=== PATIENT | female | born 1980 | race Caucasian/White ===

== ENCOUNTER 2019-08-31 10:55 | Emergency (ER) | payer OTHER, SELFPAY ==
[~2019-08-31] VITALS: Ht 167.6 cm; Wt 63.5 kg
[~2019-08-31 10:55] MED LIST: ACET-8386; BACL10TA4; BENEPROTEIN; BISA10SU1; CLON1TAB1; FOLI1TAB19; IRON; MVI; [UNRECOGNIZED DRUG - CODE]; [UNRECOGNIZED DRUG - CODE]
[2019-08-31 11:30] VITALS: BP 150/92
[2019-08-31] MEDS ORDERED: NACL 0.9% 1,000 ML IV ONE ×2 (11:30→12:40)
[2019-08-31 11:49] LABS: BASOPHILS % (AUTO) 0.5 % (0.0-2.0); EOSINOPHILS # (AUTO) 0.1 K/uL (0-0.4); EOSINOPHILS % (AUTO) 1.4 % (0.0-4.0); HEMATOCRIT 46.3 % (36-48); HEMOGLOBIN 15.7 g/dL (12.0-16.0); LYMPHOCYTES # (AUTO) 2.5 K/uL (2.5-16.5); LYMPHOCYTES % (AUTO) 26.1 % (20.5-51.1); MEAN CORPUSCULAR HEMOGLOBIN 31 pg (27-31); MEAN CORPUSCULAR HGB CONC 34 g/dL (33-37); MEAN CORPUSCULAR VOLUME 92.3 fL (80-94); MONOCYTES # (AUTO) 0.9 K/uL (0.8-1.0); MONOCYTES % (AUTO) 8.9 % (1.7-9.3); NEUTROPHILS # (AUTO) 6.1 K/uL (1.8-7.7); NEUTROPHILS % (AUTO) 63.1 % (42.2-75.2); PLATELET COUNT (AUTO) 352 K/uL (140-450); RED BLOOD CELL COUNT(AUTO) 5.02 MIL/uL (4.20-5.40); RED CELL DISTRIBUTION WIDTH 13.2 % (11.6-13.7); WHITE BLOOD COUNT (AUTO) 9.6 K/uL (4.8-10.8)
[2019-08-31 12:16] LABS: APPEARANCE,URINE HAZY (CLEAR); BILIRUBIN,URINE NEGATIVE (NEGATIVE); BLOOD, URINE 1+ (NEGATIVE); COLOR,URINE YELLOW (YELLOW); LEUKOCYTE ESTERASE ,URINE 1+ (NEGATIVE); NITRITE, URINE NEGATIVE (NEGATIVE); PH,URINE 6.5 (5.0-9.0); UGLUCOSE NEGATIVE (NEGATIVE)
[2019-08-31 12:23] LABS: PROTHROMBIN TIME 10.2 secs (10.8-13.4)
[2019-08-31 12:26] LABS: ALBUMIN 3.6 g/dL (3.4-5.0); ANION GAP 14.5 (8-16); CARBON DIOXIDE 28.3 mmol/L (21-32); CREATININE 0.4 mg/dL (0.6-1.3); POTASSIUM 3.8 mmol/L (3.5-5.1); TOTAL BILIRUBIN 0.6 mg/dL (0.0-1.0)
[2019-08-31 12:32] LABS: WBC,URINE 60-80 /HPF (0-5)
[2019-08-31] MEDS ORDERED: cefTRIAXone 1,000 MG VIAL ONE (12:49)
[2019-08-31 14:45] VITALS: BP 141/84
[2019-08-31] MEDS ORDERED: OMEP20TC12 PO (15:36)
[2019-08-31] MEDS ORDERED: CRAN450C PO (15:36)
[2019-08-31] MEDS ORDERED: DOCU-299 GT (16:51)
[2019-08-31] MEDS ORDERED: FLEPED RC (16:51)
[2019-08-31] MEDS ORDERED: ACET-2619 PO (16:51)
[2019-08-31] MEDS ORDERED: MAGN400S60 PO (16:51)
[2019-08-31] MEDS ORDERED: BISA-213 RC (16:51)
[2019-08-31] MEDS ORDERED: MULT-153 GT (16:51)
== END 2019-08-31 14:45 | disposition home or self-care (01) ==
LOC: MED 10:55 → EEVIPCON 10:55 → MED 14:45
DX: N39.0 Urinary tract infection, site not specified (principal); K21.9 Gastro-esophageal reflux disease without esophagitis; R56.9 Unspecified convulsions; Z79.899 Other long term (current) drug therapy
CPT/HCPCS: 36415; 71045; 80053; 81001; 83605; 84484; 85025; 85610; 85730; 87040; 87086; 87186; 87804; 93005; 96365; 99285; J0696; J7030; Q0092

== ENCOUNTER 2019-08-31 15:19 | Inpatient (IN) | payer OTHER, SELFPAY ==
[~2019-08-31] VITALS: Ht 152.4 cm; Wt 61.2 kg
--- NOTE | 2019-08-31 15:21 | NUR ---
PT BIB BLS TO ER BED 9
[2019-08-31 15:25] VITALS: BP 150/92
[2019-08-31] MEDS ORDERED: HYDROcodone/APAP 5/325 MG 1 TAB TAB PO PRN (15:25)
[2019-08-31] MEDS ORDERED: CRAN450C PO (15:36)
[2019-08-31] MEDS ORDERED: OMEP20TC12 PO (15:36)
--- NOTE | 2019-08-31 15:43 | NUR ---
erika back from [facility] for gtube replacement. per facility Gtube is leaking and needs to be replaced with a larger one. pt was d/c from [facility] 20 min ATHLETE MANAGER with dx of UTI and [facility] sent her back stating her gtube also needs to be replaced.
--- NOTE | 2019-08-31 15:45 | NUR ---
PATIENT'S COUSIN GANGA CALLED. PATIENT NOT YET ON FLOOR. UPDATED HER ON PATIENT'S STATUS AND CONDITION.CELL PHONE # [phone], HOME # [phone]. THOSE NUMBERS CAN BE USED TO CONTACT PT'S POA.
--- NOTE | 2019-08-31 15:45 | NUR ---
ermd at bedside
--- NOTE | 2019-08-31 16:25 | NUR ---
PATIENT ARRIVED VIA GURNEY WITH 2 CELL TENDER. REPORT RECEIVED FROM BETTY SANCHEZ. PATIENT NONVERBAL, RESPIRATIONS EVEN AND UNLABORED ON ROOM AIR. IV SITE INTACT, ASYMPTOMATIC, SL. PATIENT HAS GTUBE SITE, CURRENTLY CLAMPED. PT DX IS UTI AND GTUBE PLACEMENT. MRSA SCREENING DONE. UPDATED BOARD. PATIENT INCONTINENT. PT IS R/O COVID DROPLET PRECAUTIONS. SAFETY PRECAUTIONS IN PLACE, BED ON LOWEST POSITION WITH ALARM AND BRAKES ON, WILL CONTINUE TO MONITOR PATIENT.
--- NOTE | 2019-08-31 16:25 | NUR ---
Patient will be admitted to care of . Admited to TELEMETRY. Will go to room 127A. Belongings list completed. Report to DANIEL MARCIAL.
[2019-08-31 16:30] VITALS: BP 151/98
[2019-08-31 16:43] LABS: MAGNESIUM 1.9 mg/dL (1.8-2.4); PHOSPHORUS 4.2 mg/dL (2.5-4.9); THYROID STIMULATING HORMONE 1.26 uIU/mL (0.34-3.74)
[2019-08-31] MEDS ORDERED: MAGNESIUM HYDROXIDE 2400 MG/30 ML UDC PO PRN (16:45)
[2019-08-31] MEDS ORDERED: BISACODYL 10 MG SUPP RC SCH (16:45)
[2019-08-31] MEDS ORDERED: FLEPED RC (16:51)
[2019-08-31] MEDS ORDERED: BISA-213 RC (16:51)
[2019-08-31] MEDS ORDERED: ACET-2619 PO (16:51)
[2019-08-31] MEDS ORDERED: MAGN400S60 PO (16:51)
[2019-08-31] MEDS ORDERED: DOCU-299 GT (16:51)
[2019-08-31] MEDS ORDERED: MULT-153 GT (16:51)
--- NOTE | 2019-08-31 18:15 | NUR ---
PT RESTING IN BED WITH EYES CLOSED, NO S/S OF SOB OR DISTRESS NOTED. WILL CONTINUE TO MONITOR PATIENT. MADE DR. IZQUIERDO AWARE THAT PATIENT HAS NO IV FLUIDS AND IS CURRENTLY NPO. WAITING FOR ORDERS.
--- NOTE | 2019-08-31 19:25 | NUR ---
REPORT GIVEN TO FIREARMS MODEL MAKER NURSE AT BEDSIDE FOR CONTINUITY OF CARE.
--- NOTE | 2019-08-31 19:27 | NUR ---
RECEIVED PT FROM ANIKET RN PT NONVERBAL AWAKE , DOES NOT FOLLOW COMMANDS , CONTRACTED UPPER AND LOWER EXTREMITIES, IV ON LEFT THUMB HL PATENT, ON TELEMETRY SR RT HEEL DRY OPEN WOUND PICTURE ALREADY TAKEN IN ER , INITIAL ASSESSMENT DONE ON DROPLETS PRECAUTIONS TO R/O FRANNYID 19 INITIAL ASSESSMENT DONE
[2019-08-31] MEDS ORDERED: PANTOPRAZOLE 40 MG INJ VIAL ONE (19:46)
[2019-08-31 20:00] VITALS: BP 159/100
[2019-08-31] MEDS: DEXT 5% / NACL 0.9% 500 ML IV SCH ×2 (20:30→23:55)
[2019-08-31] MEDS: PANTOPRAZOLE 40 MG INJ VIAL IVP SCH (20:50)
[2019-08-31] MEDS ORDERED: DOCUSATE SODIUM 100 MG GELCAP PO SCH (21:00)
[2019-08-31] MEDS ORDERED: ACETAMINOPHEN 325 MG TAB PO SCH (21:00)
[2019-08-31] MEDS ORDERED: BACLOFEN 10 MG TAB GT SCH (21:00)
--- NOTE | 2019-08-31 23:00 | NUR ---
PT ON CLOSE MONITORING NOT SOB NOTED REPOSITIONED, ON TELEMETRY SR RT FOOT ON PILLOW ELEVATION
[2019-09-01] VITALS (7 sets, daily range): BP systolic 120–161; BP diastolic 60–100
--- NOTE | 2019-09-01 02:30 | NUR ---
PT HAS BEEN MONITORING CLOSE ON TELEMETRY ST, PT CONTRACTED IV ON LEFT THUMB INFUSING WELL, G TUBE CLAMP REMAIN STABLE AT THIS TIME
[2019-09-01] MEDS: DEXT 5% / NACL 0.45% 1,000 ML IV SCH ×2 (03:41→19:55)
[2019-09-01] MEDS ORDERED: MILD SOAP AND WATER TP PRN (03:50)
--- NOTE | 2019-09-01 05:00 | NUR ---
PT CONTRACTED ON TELE SR. G TUBE IS C;AMP, NOT DISTRESS NO;BENOIT LINEJin CHANGED, PT INCONTINENT
[2019-09-01 06:14] LABS: CHOL/HDL RATIO 3.2 (1-4.5)
[2019-09-01 06:32] LABS: BASOPHILS % (AUTO) 0.6 % (0.0-2.0); EOSINOPHILS # (AUTO) 0.2 K/uL (0-0.4); EOSINOPHILS % (AUTO) 2.3 % (0.0-4.0); HEMATOCRIT 44.5 % (36-48); HEMOGLOBIN 14.9 g/dL (12.0-16.0); LYMPHOCYTES # (AUTO) 3.6 K/uL (2.5-16.5); LYMPHOCYTES % (AUTO) 42.6 % (20.5-51.1); MEAN CORPUSCULAR HEMOGLOBIN 31 pg (27-31); MEAN CORPUSCULAR HGB CONC 33 g/dL (33-37); MEAN CORPUSCULAR VOLUME 92.2 fL (80-94); MONOCYTES # (AUTO) 0.8 K/uL (0.8-1.0); MONOCYTES % (AUTO) 9.2 % (1.7-9.3); NEUTROPHILS # (AUTO) 3.9 K/uL (1.8-7.7); NEUTROPHILS % (AUTO) 45.3 % (42.2-75.2); PLATELET COUNT (AUTO) 299 K/uL (140-450); RED BLOOD CELL COUNT(AUTO) 4.83 MIL/uL (4.20-5.40); WHITE BLOOD COUNT (AUTO) 8.5 K/uL (4.8-10.8)
--- NOTE | 2019-09-01 06:34 | NUR ---
PT WILL BE ENDORSED TO DAY SHIFT NURSE FOR CONTINUE OF CARE, PENDINT TO BE SEEN BY DR FLORES
[2019-09-01 06:46] LABS: ANION GAP 11.8 (8-16); CARBON DIOXIDE 24.6 mmol/L (21-32); CREATININE 0.4 mg/dL (0.6-1.3); POTASSIUM 3.4 mmol/L (3.5-5.1)
[2019-09-01 06:50] LABS: MAGNESIUM 1.9 mg/dL (1.8-2.4); PHOSPHORUS 2.5 mg/dL (2.5-4.9)
--- NOTE | 2019-09-01 07:05 | NUR ---
RECEIVED PT FROM TILER'S ASSISTANT NURSE. PT IS CURRENTLY AWAKE, LAYING IN BED WITH NO SIGNS OF DISTRESS NOTED. SKIN IS INTACT MINUS DRY R. HEEL WOUND. IV PATENT ASYMPTOMATIC AND INFUSING PER ORDER. RESPIRATIONS ARE EVEN AND UNLABORED ON ROOM AIR WITH NO SIGNS OF DISTRESS. BED IS IN LOW SEMI-FOWLERS POSITION, SAFETY MEASURES IN PLACE AND WILL CONTINUE TO MONITOR.
[2019-09-01] MEDS ORDERED: SODIUM PHOSPHATE 118 ML ENEM RC PRN (07:15)
[2019-09-01 08:06] LABS: T4 (THYROXINE) 9.8 ug/dL (4.5-12.0)
[2019-09-01] MEDS: FOAM DRESSING TP SCH (09:00)
[2019-09-01] MEDS: MULTIVITAMIN 1 TAB GT SCH (09:00)
--- NOTE | 2019-09-01 09:29 | NUR ---
PATIENT HAS BEEN SCREENED AND CATEGORIZED HIGH NUTRITION RISK. PATIENT WILL BE SEEN WITHIN 1-2 DAYS OF ADMISSION. 09/01/19-09/02/[address]
--- NOTE | 2019-09-01 10:03 | NUR ---
NETWORK CABLE INSTALLER NOTE: Basic Screen: Yes High Risk DC Screen [place]: ROSALIE JOHNSON Home Relationship: FATHER Pre-Admission Living Arrangements: SNF Other: [facility] Prior ADL Total/Dependent Current Home Health Name/Tel: N/A Current DME/02 Name/Tel: HOSPITAL BED Current Hospice Name/Tel: N/A Current Dialysis Name/Tel: N/A Healthcare Decision Maker: Next of Kin Other: FATHER - ROSALIE JOHNSON Advance Directive No Physician Orders for Life Sustaining Treatment Form No Patient/Family Have Educational Needs No Discipline: Case Mgt/Social Svcs Tentative Discharge Plan/Destination: SNF/ECF Other: [facility] Will require assistance post discharge: No Referred to Captain Airline Pilot: No Tentative Discharge Plan Summary: PATIENT IS A 38-YEAR-OLD MALE ADMITTED FOR G-TUBE SITE INFECTION. PATIENT HAS END STAGE MS, QUADRIPLEGIA, SCHIZOPHRENIA, HX OF SEIZURES, AND DYSPHAGIA. PAT[place] [facility] SW CONTACTED AMAURI FROM [facility] [phone]. PER AMAURI, PATIENT IS SENIOR CARE AND ON BED HOLD. AMAURI STATED THAT PATIENT IS NOT ALERT/ORIENTED AT BASELINE AND REQUIRES TOTAL ASSISTANCE WITH ADLS. AMAURI STATED THAT PATIENT'S FATHER IS HEALTHCARE DECISION MAKER. TENTATIVE DISCHARGE PLAN IS FOR PATIENT TO RETURN HOME. NO FURTHER NEEDS IDENTIFIED. Signature: TIAGO ROSARIO Date: September 01, 2019 Time: 10:02
[2019-09-01] MEDS: PANTOPRAZOLE 40 MG INJ VIAL IVP SCH ×2 (10:07→20:26)
--- NOTE | 2019-09-01 10:30 | NUR ---
ADMINISTERED MEDICATIONS PER ORDER AND TOLERATED WELL. MULTIVITAMIN WAS NOT GIVEN DUE TO G-TUBE DISPLACEMENT. PT WAS CHANGED, HAD VOID AND BM. HEEL LIFTS WERE APPLIED TO BOTH HEEL AND DRESSING WAS CHANGED. SAFETY MEASURES IN PLACE AND WILL CONTINUE TO MONITOR.
--- NOTE | 2019-09-01 12:45 | NUR ---
PT IS CURRENTLY IN STABLE CONDITION. NO SIGNS OF DISTRESS NOTED. VITAL SIGNS ARE WITHIN NORMAL RANGE. SAFETY MEASURES I NPLACE ADN WILL CONTINUE TO MONITOR.
--- NOTE | 2019-09-01 14:06 | NUR ---
PT IS CURRENTLY LAYING IN BED WITH NO SIGNS OF DISTRESS NOTED. PT WAS CHANGED AND VOIDED, SAFETY MEASURES IN PLACE AND WILL CONTINUE OT MONITOR.
[2019-09-01] MEDS ORDERED: POTASSIUM CHLORIDE 40 MEQ, LIDOCAINE MPF 1% 25 MG in NACL 0.9% 250 ML IV SCH (15:00)
--- NOTE | 2019-09-01 15:30 | NUR ---
POTASSIUM IS LOW AND NEEDS TO BE REPLENISHED. PHYSICIAN WILL PUT IN ORDER. DR. JONES CAME TO EVALUATE PT. WANTS G-TUBE TO BE REMOVED AND COLOSTOMY BAG PLACED OVER. KUB TO BE DONE FIRST. SAFETY MEASURES IN PLACE AND WILL CONTINUE TO MONITOR.
--- NOTE | 2019-09-01 16:12 | NUR ---
WOUND CARE EVALUATION NOTE: SKIN ASSESSMENT DONE WITH THIS 38 Y/O FEMALE PT ADMITTED TO [facility] WITH INITIAL DX OF GT SITE LEAKAGE. PAST MEDICAL HX MULTIPLE SCLEROSIS, SCHIZOPHRENIA, QUADRIPLEGIA, HISTORY OF SEIZURES, DYSPHAGIA S/P G-TUBE PLACEMENT. PT. ADMITTED WITH UN-STAGEABLE PRESSURE ULCER TO RIGHT HEEL. PT. IS CONTRACTURES TO UPPER AND LOWER EXTREMITIES. PLAN OF CARE DISCUSSED WITH PRIMARY RN AND DR. ZELAYA INTEGUMENTARY -GT PEARL STOMA SKIN EROSION RED MOIST WITH GT LEAKAGE -RIGHT LATERAL HEEL UN-STAGEABLE PRESSURE ULCER 3X3CM IRREGULAR SHAPE BLACK STABLE ESCHAR, PEARL WOUND SKIN SCALY. -LEFT HEEL BLISTER SEEPING SEROUS DRAINAGE, NO ODOR RECOMMENDATIONS: -PAINT RIGHT HEEL WITH BETADINE BID AND ENTRY LEVEL PROJECT ENGINEER, APPLY HEEL RAISER OFFLOADING AND WEIGHT SHIFTING Q2H -LEFT HEEL APPLY FOAM DRESSING DAILY, OFFLOADING WITH HEEL RAISER AND WEIGHT SHIFTING Q2H -CLEANSE GT PEARL STOMA SKIN EROSION WITH NS, PAT DRY, APPLY Z-GUARD AND COVER WITH SPLIT GAUZE DAILY AND PRN IF SOILING -TURN AND REPOSITION PATIENT Q 2H -ASSESS AND MONITOR SKIN CONDITION DURING POSITION CHANGE -OFFLOAD BILATERAL HEELS BY PLACING PILLOWS UNDER CALVES AT ALL TIMES, UNLESS OTHERWISE CONTRAINDICATED -PRESSURE REDISTRIBUTION BY PLACING PILLOWS AND OFFLOADING SACRALCOCCYX -KEEP SKIN CLEAN AND DRY AT ALL TIMES. ALL ABOVE RECOMMENDATIONS DISCUSSED WITH PRIMARY RN PLEASE CONTACT WOUND CARE NURSE FOR ANY QUESTION AND CHANGE OF WOUND CONDITION.
--- NOTE | 2019-09-01 16:14 | NUR ---
09/01/19 RD INITIAL ASSESSMENT COMPLETED PLEASE REFER TO NUTRITION ASSESSMENT UNDER CARE ACTIVITY FOR ESTIMATED NUTRITIONAL NEEDS. 1. CONTINUE NPO MEDICALLY NECESSARY AND CONTINUE DEXTROSE/NACL IV FLUIDS 2. IF/WHEN PT IS MEDICALLY STABLE, CONSIDER JEVITY 1.2 @ 45 ML/HR X 24 HR. START AT 10, INCREASE BY 10 Q6H UNTIL GOAL REACHED -THIS WILL PROVIDE 1080 ML OF VOLUME, 1296 CALORIES AND 60 GM OF PROTEIN WHICH MEETS 100% OF ESTIMATED NUTRIENT NEEDS 3. RECOMMEND 105 ML Q6H OF FREE WATER FLUSH 4. RECOMMEND FABIANA BID VIA G-TUBE 5. RD TO FOLLOW-UP 2-3 DAYS, HIGH RISK NICOLETTE REED RD
--- NOTE | 2019-09-01 17:30 | NUR ---
G TUBE WAS TAKEN OUT WITH NO DRAINAGE NOTED. COLOSTOMY BAG PLACED OVER G TUBE SITE. SKIN IS RED AROUND SITE BUT SKIN IS INTACT. K-RIDER STARTED. SAFETY MEASURES IN PLACE AND WILL CONTINUE TO MONITOR.
--- NOTE | 2019-09-01 18:00 | NUR ---
PT IS CURRENTLY IN NO SIGNS OF DISTRESS. PT WAS CHANGED WITH BOWEL MOVEMENT AND VOID. BLOOD PRESSURE WAS HIGH AND PHYSICIAN IS AWARE. SAFETY MEASURES IN PLACE AND WILL CONTINUE OT MONITOR.
--- NOTE | 2019-09-01 18:43 | NUR ---
PT IS IN STABLE CONDITION WITH SAFETY MEASURES IN PLACE. WILL ENDORSE TO RESIDENCE LIFE DIRECTOR NURSE FOR CONTINUITY OF CARE.
--- NOTE | 2019-09-01 19:24 | NUR ---
RECEIVED PT IN STABLE CONDITION FROM AM NURSE. AWAKE BUT NON VERBAL. BEDREST. ON TELE MONITOR. WITH NO RESPIRATORY DISTRESS NOTED. O2 SAT 100%. GT SITE WITH COLOSTOMY BAG. IVF INFUSING WELL ON THE LT THUMB G#22. CLEAR AND PATENT. FREQ ROUNDS. WITH BED ON LOW POSITION. BUSINESS PROPOSAL REP AILS UP X2, CALL LIGHT PLACED WITHIN EASY REACH. ON DROPLET PRECAUTION , COVID-19 TEST STILL PENDING. WILL CONTINUE TO MONITOR.
--- NOTE | 2019-09-01 20:26 | NUR ---
DUE MEDS GIVEN AT THIS TIME. NO DISCOMFORT NOTED.
--- NOTE | 2019-09-01 21:30 | NUR ---
CHECKED ON PT. AWAKE WITH NO RESPIRATORY DISTRESS NOTED. O2 SAT 100%.
--- NOTE | 2019-09-01 23:00 | NUR ---
CHECKED ON PT. WAKE BUT NO S/S OF ANY DISCOMFORT NOTED. WILL CONTINUE TO MONITOR.
--- NOTE | 2019-09-02 00:10 | NUR ---
REPOSITIONED FOR COMFORT. NO S/S OF ANY DISCOMFORT NOTED.
--- NOTE | 2019-09-02 01:10 | NUR ---
DR. MARSHALL MADE AWARE ABOUT THE RESULT OF COVID TEST WHICH IS NOT DETECTED. ASKED IF HE NEEDS A SECOND TEST. WILL WAIT FOR ANY ORDER.
--- NOTE | 2019-09-02 02:40 | NUR ---
MADE ROUNDS. PT IS ASLEEP. NO S/S OF ANY DISCOMFORT NOTED.
[2019-09-02 03:31] VITALS: BP 153/86
--- NOTE | 2019-09-02 04:02 | NUR ---
SECOND COVID TESTING DONE. SPECIMEN COLLECTED AND SEND TO LAB .
--- NOTE | 2019-09-02 05:30 | NUR ---
GT STOMA WITH CLEAR LIQUID DRAIN FROM THE COLOSTOMY BAG, EMPTIED @ 100 ML.
[2019-09-02 06:14] LABS: BASOPHILS # (AUTO) 0.1 K/uL (0.00-0.22); BASOPHILS % (AUTO) 0.7 % (0.0-2.0); EOSINOPHILS # (AUTO) 0.1 K/uL (0-0.4); EOSINOPHILS % (AUTO) 0.6 % (0.0-4.0); HEMOGLOBIN 15.5 g/dL (12.0-16.0); LYMPHOCYTES # (AUTO) 2.6 K/uL (2.5-16.5); LYMPHOCYTES % (AUTO) 30.3 % (20.5-51.1); MEAN CORPUSCULAR HEMOGLOBIN 31 pg (27-31); MEAN CORPUSCULAR HGB CONC 34 g/dL (33-37); MEAN CORPUSCULAR VOLUME 90.9 fL (80-94); MONOCYTES # (AUTO) 0.8 K/uL (0.8-1.0); MONOCYTES % (AUTO) 9.1 % (1.7-9.3); NEUTROPHILS # (AUTO) 5.1 K/uL (1.8-7.7); NEUTROPHILS % (AUTO) 59.3 % (42.2-75.2); PLATELET COUNT (AUTO) 314 K/uL (140-450); RED BLOOD CELL COUNT(AUTO) 4.95 MIL/uL (4.20-5.40); RED CELL DISTRIBUTION WIDTH 12.8 % (11.6-13.7); WHITE BLOOD COUNT (AUTO) 8.6 K/uL (4.8-10.8)
[2019-09-02 06:16] LABS: ANION GAP 11.7 (8-16); CREATININE 0.5 mg/dL (0.6-1.3); POTASSIUM 3.7 mmol/L (3.5-5.1)
--- NOTE | 2019-09-02 06:20 | NUR ---
CHECKED ON PT. AWAKE. WITH NO DISTRESS NOTED. O2 SAT 99% ON ROOM AIR.
[2019-09-02 06:30] LABS: MAGNESIUM 1.7 mg/dL (1.8-2.4); PHOSPHORUS 2.6 mg/dL (2.5-4.9)
--- NOTE | 2019-09-02 07:10 | NUR ---
ENDORSED PT IN STABLE TO AM NURSE FOR CONTINUITY OF CARE.
--- NOTE | 2019-09-02 07:11 | NUR ---
RECEIVED REPORT FROM BARREL SCRAPER NURSE. PT IS AWAKE WATCHING TV IN BED. NO SIGNS OF DISTRESS NOTED. SKIN IS INTACT MINUS DRY R. HEEL WOUND. IV SITE PATENT AND INFUSING PER ORDER. RESPIRATIONS ARE EVEN AND UNLABORED ON ROOM AIR WITH NO SIGNS OF DISTRESS. BED IS IN LOW SEMI-FOWLERS POSITION, SAFETY MEASURES IN PLACE, WILL CONTINUE TO MONITOR.
[2019-09-02 08:00] VITALS: BP 147/82
[2019-09-02] MEDS: MULTIVITAMIN 1 TAB GT SCH (08:33)
[2019-09-02] MEDS: PANTOPRAZOLE 40 MG INJ VIAL IVP SCH ×2 (08:42→20:57)
--- NOTE | 2019-09-02 08:57 | NUR ---
SCHEDULED MEDICATIONS GIVEN. PATIENT TOLERATED WELL. MULTIVITAMIN HELD DUE TO G TUBE SITE INFECTION AND REMOVAL. NO SIGNS OF DISTRESS NOTED. WILL CONTINUE TO MONITOR.
--- NOTE | 2019-09-02 11:00 | NUR ---
PATIENT RESTING IN BED. NO SIGNS OF DISTRESS NOTED. WILL CONTINUE TO MONITOR
[2019-09-02 12:00] VITALS: BP 136/88
--- NOTE | 2019-09-02 13:00 | NUR ---
HEEL WOUNDS AND GTUBE SITE CLEANSED PER ORDER, PATIENT REPOSITIONED. NO SIGNS OF DISTRESS NOTED. WILL CONTINUE TO MONITOR.
[2019-09-02] MEDS: DEXT 5% / NACL 0.45% 1,000 ML IV SCH (13:15)
[2019-09-02] MEDS: GAUZE TP SCH (13:17)
[2019-09-02] MEDS: Z-GUARD PASTE TP SCH (13:18)
[2019-09-02 16:00] VITALS: BP 146/93
--- NOTE | 2019-09-02 16:26 | NUR ---
12FR NG TUBE PLACED PER ORDER. PATIENT TOLERATED WELL. SET TO LOW INTERMITTENT SUCTION. STAT CHEST XRAY ORDERED. NO DISTRESS NOTED. WILL CONTINUE TO MONITOR.
--- NOTE | 2019-09-02 19:00 | NUR ---
REPORT GIVEN TO CLASS C TRUCK DRIVER NURSE FOR CONTINUITY OF CARE.
--- NOTE | 2019-09-02 19:27 | NUR ---
RECEIVED BEDSIDE REPORT FROM DAY RN. PT IS APHASIC. RESPIRATIONS ARE EQUAL AND UNLABORED ON ROOM AIR. PT WITH NGT TO LOW INTERMITTENT SUCTIONS. HAD GTUBE REMOVED AND COLOSTOMY BAG WITH DRAINAGE NOTED. PATIENT IS INCONTINENT. IV ON L THUMB 22G IVF PER ORDERS. PT SKIN IS WAMR AND DRY. HAS CYRIL HEEL UN-STAGEABLE ULCER. R HIP ULCER DRESSINGS ARE C/D/I. POC DISCUSSED. PT ON ISOLATION TO R/O COVID. SAFETY MEASURES ARE IN PLACE. CALL LIGHT IS WITHIN REACH.
[2019-09-02 20:00] VITALS: BP 169/97
[2019-09-02] MEDS ORDERED: LISINOPRIL 10 MG TAB ONE (20:52)
[2019-09-02] MEDS ORDERED: CRUSHER, PILL MC ONE (20:55)
[2019-09-02] MEDS: LISINOPRIL 5 MG TAB PO SCH (20:57)
--- NOTE | 2019-09-02 20:58 | NUR ---
PT IS STABLE. VSS B/P ELEVATED GAVE LISINOPRIL PER ORDERS AND STOPPED SUCTION WILL RESUME IN APPROX 30MIN. ALL JE MEDS GIVEN. PT WAS CLEANED AND REPOSITION. SAFETY MEASURES ARE IN PLACE. WILL CONTINUE TO MONITOR.
--- NOTE | 2019-09-02 22:47 | NUR ---
PT IS RESTING COMFORTABLY IN BED WITH EYES CLOSED. CHEST RISE AND FALL NOTED. WILL CONTINUE TO MONITOR.
[2019-09-03] VITALS: BP 145/92
--- NOTE | 2019-09-03 | NUR ---
VSS. PT WAS CLEANED AND REPOSITION. CHANGED COLOSTOMY BAG ON OLD G TUBE SITE AND CLEAN NS, HERNANDEZ DRY AND APPLIED Z GUARD. EMPTIED 40CC OF YELLOW/BROWN DRAINAGE. PT TOLERATED WELL. WILL CONTINUE TO MONITOR.
--- NOTE | 2019-09-03 02:06 | NUR ---
PATIENT IS SLEEPING COMFORTABLY IN BED WITH EYES CLOSED. CHEST RISE AND FALL NOTED. NO S/S OF DISTRESS. WILL CONTINUE TO MONITOR.
[2019-09-03] MEDS: MORPHINE SULFATE 2 MG/ML SYR IVP PRN ×2 (03:16→20:32)
--- NOTE | 2019-09-03 03:16 | NUR ---
VITAL SIGNS ARE STABLE. HR HIGH IN 130S PT WITH SOME GRIMACING ADMINISTERED PRN MORPHINE. WILL CONTINUE TO MONITOR.
[2019-09-03 03:59] VITALS: BP 153/89
--- NOTE | 2019-09-03 04:30 | NUR ---
PATIENT WAS CLEANED AND REPOSITION FOR COMFORT. ALL SAFETY MEASURES ARE IN PLACE. G-TUBE STOMA WITH NO DRAINAGE NOTED. 450 OUTPUT ON SUCTION CANISTER LIGHT PINK TINGED. PT TOLERATED WELL. WILL CONTINUE TO MONITOR.
[2019-09-03] MEDS: DEXT 5% / NACL 0.45% 1,000 ML IV SCH ×2 (05:15→21:55)
[2019-09-03 06:22] LABS: ANION GAP 14.5 (8-16); CARBON DIOXIDE 26.7 mmol/L (21-32); CREATININE 0.6 mg/dL (0.6-1.3); POTASSIUM 3.2 mmol/L (3.5-5.1)
[2019-09-03 06:25] LABS: MAGNESIUM 1.9 mg/dL (1.8-2.4); PHOSPHORUS 3.4 mg/dL (2.5-4.9)
--- NOTE | 2019-09-03 06:27 | NUR ---
PATIENT IS LAYING COMFORTABLY IN BED WITH EYES CLOSED. RESPIRATIONS ARE EQUAL AND UNLABORED ON ROOM AIR SAT 100%. NO S/S OF DISTRESS. WILL CONTINUE TO MONITOR.
[2019-09-03 07:23] LABS: HEMATOCRIT 44.9 % (36-48); HEMOGLOBIN 15.8 g/dL (12.0-16.0); MEAN CORPUSCULAR HEMOGLOBIN 32 pg (27-31); MEAN CORPUSCULAR HGB CONC 35 g/dL (33-37); MEAN CORPUSCULAR VOLUME 91.4 fL (80-94); PLATELET COUNT (AUTO) 521 K/uL (140-450); RED BLOOD CELL COUNT(AUTO) 4.92 MIL/uL (4.20-5.40); RED CELL DISTRIBUTION WIDTH 13.2 % (11.6-13.7); WHITE BLOOD COUNT (AUTO) 10.9 K/uL (4.8-10.8)
[2019-09-03] MEDS ORDERED: HYDROmorphone PFS 2 MG/ML SYR ONE (07:25)
--- NOTE | 2019-09-03 07:30 | NUR ---
GAVE BEDSIDE REPORT FROM DAY RN. PT ENDORSED IN STABLE CONDITION.
--- NOTE | 2019-09-03 07:31 | NUR ---
RECEIVED REPORT FROM TAILOR HELPER NURSE. PATIENT IN STABLE CONDITION. PATIENT IS AWAKE LAYING IN BED. NO SIGNS OF DISTRESS NOTED. RESPIRATIONS EVEN AND UNLABORED. NG TUBE PATENT AND DRAINING. SAFETY MEASURES IN PLACE, BED IN LOWEST POSITION, CALL LIGHT WITHIN REACH. WILL CONTINUE TO MONITOR.
[2019-09-03 08:00] VITALS: BP 156/89
--- NOTE | 2019-09-03 09:00 | NUR ---
SCHEDULED MEDICATIONS GIVEN. PATIENT TOLERATED WELL. G TUBE SITE MEASURED: 0.2X4X6. WILL CONTINUE TO MONITOR.
[2019-09-03] MEDS: PANTOPRAZOLE 40 MG INJ VIAL IVP SCH ×2 (09:30→20:04)
[2019-09-03] MEDS: LISINOPRIL 5 MG TAB PO SCH (09:30)
[2019-09-03] MEDS: MULTIVITAMIN 1 TAB GT SCH (09:31)
[2019-09-03 10:25] LABS: LYMPHOCYTES % (MANUAL) 31 % (20-46); MONOCYTES % (MANUAL) 12 % (5-12)
--- NOTE | 2019-09-03 10:56 | NUR ---
PATIENT IN BED RESTING. NO DISTRESS NOTED. AWAKENS TO NAME. NG TUBE PATENT AND DRAINING, SET TO LOW INTERMITTENT SUCTION. SAFETY MEASURES IN PLACE. WILL CONTINUE TO MONITOR.
--- NOTE | 2019-09-03 11:30 | NUR ---
DR JONES ON UNIT TO PERFORM PROCEDURE BEDSIDE. G TUBE REPLACED BY DR. JONES, PATIENT TOLERATED WELL. PER DR JONES IF GASTROFFIN XRAY ABD SHOWS G TUBE IN PLACE OKAY TO USE GTUBE. WILL CONTINUE TO MONITOR.
[2019-09-03 12:00] VITALS: BP 134/92
[2019-09-03] MEDS: GAUZE TP SCH (13:03)
[2019-09-03] MEDS: Z-GUARD PASTE TP SCH (13:03)
--- NOTE | 2019-09-03 15:00 | NUR ---
PATIENT IN BED ALERT, NG TUBE REMOVED PER ORDER. PATIENT TOLERATED WELL. NO SIGNS OF DISTRESS NOTED. WILL CONTINUE TO MONITOR.
--- NOTE | 2019-09-03 15:42 | NUR ---
09/03/19 RD FOLLOW UP COMPLETED PLEASE REFER TO NUTRITION ASSESSMENT UNDER CARE ACTIVITY FOR ESTIMATED NUTRITIONAL NEEDS. 1. IF/WHEN PT IS MEDICALLY STABLE, CONSIDER JEVITY 1.2 @ 45 ML/HR X 24 HR. START AT 10, INCREASE BY 10 Q6H UNTIL GOAL REACHED -PROVIDES 1296 CALORIES AND 60 GM OF PROTEIN WHICH MEETS 100% OF ESTIMATED NUTRIENT NEEDS 2. RECOMMEND 105 ML Q6H OF FREE WATER FLUSH 3. RECOMMEND FABIANA BID VIA G-TUBE 4. RD TO FOLLOW-UP 2-3 DAYS, HIGH RISK NICOLETTE REED, RD
[2019-09-03 16:00] VITALS: BP 140/86
--- NOTE | 2019-09-03 17:15 | NUR ---
PATIENT RESTING IN BED QUIETLY, NO SIGNS OF DISTRESS NOTED. WILL CONTINUE TO MONITOR.
[2019-09-03] MEDS ORDERED: POTASSIUM CHLORIDE 20% 40 MEQ/15 ML UDC GT SCH (19:00)
--- NOTE | 2019-09-03 19:16 | NUR ---
PATIENT ENDORSED TO HEAVY EQUIPMENT OPERATOR APPRENTICE NURSE IN STABLE CONDITION FOR CONTINUITY OF CARE.
--- NOTE | 2019-09-03 19:17 | NUR ---
RECEIVED BEDSIDE REPORT FROM DAY RN. PT IS APHASIC. RESPIRATIONS ARE EQUAL AND UNLABORED ON ROOM AIR. HAD GTUBE REMOVED X 3 DAYS AGO NEW GTUBE INSERTED TODAY WITH DR JONES. MADELINE DONE AND PLACEMENT VERIFIED. NEW ORDER FOR TUBE FEEDING. PATIENT IS INCONTINENT. IV ON L THUMB 22G IVF PER ORDERS. PT SKIN IS WARM AND DRY. HAS R HEEL UN-STAGEABLE ULCER AND L HEEL BLISTER DRESSINGS ARE C/D/I. POC DISCUSSED. PT ON STANDARD ISOLATION COVID-19 NEG X2. SAFETY MEASURES ARE IN PLACE. CALL LIGHT IS WITHIN REACH. WILL ROUND FREQUENTLY.
[2019-09-03 20:00] VITALS: BP 139/94
--- NOTE | 2019-09-03 20:14 | NUR ---
VSS. HR ELEVATED 120S ADMINISTERED PRN MORPHINE PT GROANING AND FACIAL GRIM. WILL CONTINUE TO MONITOR.
[2019-09-03] MEDS ORDERED: NACL 0.9% 500 ML IV ONE (21:10)
[2019-09-03] MEDS ORDERED: MORPHINE SULFATE 2 MG/ML SYR IVP PRN (21:10)
--- NOTE | 2019-09-03 21:10 | NUR ---
HR STILL IN 120S DR ALTMAN AT BEDSIDE. NEW ORDER 500CC NS BOLUS AND ANOTHER DOSE OF MORPHINE WILL GIVE TO PT.
--- NOTE | 2019-09-03 22:10 | NUR ---
PATIENT IS SLEEPING COMFORTABLY IN BED WITH EYES CLOSED. CHEST RISE AND FALL NOTED. PATIENT WITH NO RESIDUALS. STARTED FEEDING JEVITY 1.2 AT 10ML/H ORDER TO INCREASE RATE BY 10/Q6H UNTIL GOAL 40ML/H. BOLUS COMPLETE HR IN 110S. B/P 128/86 HR 113. WILL CONTINUE TO MONITOR.
[2019-09-04] VITALS: BP 103/64
--- NOTE | 2019-09-04 | NUR ---
VITAL SIGNS ARE WITHIN NORMAL LIMITS. ALL SAFETY MEASURES ARE IN PLACE. WILL CONTINUE TO MONITOR.
--- NOTE | 2019-09-04 02:04 | NUR ---
INCREASED FEEDING RATE BY 10CC. RATE NOW 20ML/H. PT WITH NO RESIDUALS. PT IS SLEEPING COMFORTABLY IN BED WITH EYES CLOSED. CHEST RISE AND FALL NOTED. WILL CONTINUE TO MONITOR.
[2019-09-04 04:00] VITALS: BP 113/69
--- NOTE | 2019-09-04 04:00 | NUR ---
VITAL SIGNS ARE WITHIN NORMAL LIMITS. ALL SAFETY MEASURES ARE IN PLACE.
[2019-09-04 06:10] LABS: BASOPHILS % (AUTO) 0.3 % (0.0-2.0); EOSINOPHILS # (AUTO) 0.1 K/uL (0-0.4); EOSINOPHILS % (AUTO) 1.5 % (0.0-4.0); HEMATOCRIT 42.5 % (36-48); HEMOGLOBIN 14.3 g/dL (12.0-16.0); LYMPHOCYTES # (AUTO) 3.7 K/uL (2.5-16.5); LYMPHOCYTES % (AUTO) 40.2 % (20.5-51.1); MEAN CORPUSCULAR HEMOGLOBIN 31 pg (27-31); MEAN CORPUSCULAR HGB CONC 34 g/dL (33-37); MEAN CORPUSCULAR VOLUME 92.4 fL (80-94); MONOCYTES # (AUTO) 1.2 K/uL (0.8-1.0); MONOCYTES % (AUTO) 12.6 % (1.7-9.3); NEUTROPHILS # (AUTO) 4.2 K/uL (1.8-7.7); NEUTROPHILS % (AUTO) 45.4 % (42.2-75.2); PLATELET COUNT (AUTO) 341 K/uL (140-450); RED CELL DISTRIBUTION WIDTH 13.1 % (11.6-13.7); WHITE BLOOD COUNT (AUTO) 9.2 K/uL (4.8-10.8)
[2019-09-04 06:53] LABS: ANION GAP 14.9 (8-16); CARBON DIOXIDE 24.6 mmol/L (21-32); CREATININE 0.5 mg/dL (0.6-1.3); POTASSIUM 3.5 mmol/L (3.5-5.1)
[2019-09-04 07:19] LABS: MAGNESIUM 1.8 mg/dL (1.8-2.4); PHOSPHORUS 2.6 mg/dL (2.5-4.9)
--- NOTE | 2019-09-04 07:28 | NUR ---
GAVE BEDSIDE REPORT TO DAY RN. PT ENDORSED IN STABLE CONDITION.
--- NOTE | 2019-09-04 07:30 | NUR ---
RECEIVED BEDSIDE REPORT FROM THE TOOL SMITH NURSE. PT IS ASLEEP WITH VISIBLE CHEST RISE AND FALL. PT IS APHASIC, A&OX0. RESPIRATION EVEN AND UNLABORED ON ROOM AIR. FLACC 0. NO SIGNS OF ACUTE DISTRESS NOTED. IV AT LEFT THUMB 22G, CLEAN AND INTACT, INFUSING D5NS0.45 AT 60 ML/HR. PT HAS SKIN TEAR AT G-TUBE SITE, PROJECT ASSISTANT WITH Z-GUARD, ULCER AT RIGHT HEEL, BLISTER AT LEFT HAND, COVERED WITH OPTIFORM, CLEAN AND DRY. G-TUBE IN PLACE, INFUSING JEVITY 1.2 AT 20 ML/HR AND H2O FLUSH 105 Q6H. PT IS BEDBOUND AND INCONTINENT. SEIZURE PRECAUTION AND FALL PRECAUTION IN PLACE. TELE MONITOR ATTACHED. SAFETY MEASURES IN PLACE. BED IN LOW POSITION AND CALL LIGHT WITHIN REACH. HOB ELEVATED 30 DEGREE. BED ALARM ACTIVATED.
[2019-09-04 08:00] VITALS: BP 148/82
[2019-09-04] MEDS: MULTIVITAMIN 1 TAB GT SCH (09:44)
[2019-09-04] MEDS: LISINOPRIL 5 MG TAB PO SCH (09:44)
[2019-09-04] MEDS: PANTOPRAZOLE 40 MG INJ VIAL IVP SCH ×2 (09:45→21:35)
[2019-09-04] MEDS: FOAM DRESSING TP SCH (09:46)
--- NOTE | 2019-09-04 09:50 | NUR ---
CHECKED BP AND G-TUBE RESIDUAL PRIOR TO MED ADMINISTER, BP 140/80 PULSE 102 AND RESIDUAL < 3 ML. FLUSHED BEFORE AND AFTER MEDS ADMINISTERED VIA G-TUBE, MEDS EDUCATION PROVIDED AND REINFORCEMENT NEEDED DUE TO MENTAL STATUS. INCREASED G-TUBE FEEDING TO 30 ML/HR AND H2O FLUSH 105 ML/ Q6H. PT AWAKE AND RESTING ON BED. FLACC 0. NO SIGNS OF ACUTE DISTRESS NOTED. ENVIRONMENTAL PLANNING ENGINEER IS PROVIDING HYGIENE CARE. TELE MONITOR ATTACHED. SAFETY MEASURES IN PLACE. BED IN LOW POSITION AND CALL LIGHT WITHIN REACH. BED ALARM ACTIVATED.
[2019-09-04] MEDS: LEVOFLOXACIN 750 MG/D5W PREMIX 150 ML IV SCH (10:25)
--- NOTE | 2019-09-04 10:29 | NUR ---
ADMINISTERED ANTIBIOTIC LEVAQUIN PER MD ORDER, MED EDUCATION PROVIDED AND REINFORCEMENT NEEDED. PT AWAKE AND RESTING ON BED AT THIS TIME. NO SIGNS OF DISTRESS NOTED. TELE MONITOR ATTACHED. SAFETY MEASURES IN PLACE. BED IN LOW POSITION AND CALL LIGHT WITHIN REACH. BED ALARM ACTIVATED.
--- NOTE | 2019-09-04 11:15 | NUR ---
PT AWAKE AND RESTING ON BED AT THIS TIME. RESPIRATION EVEN AND UNLABORED ON RA. FLACC 0. NO SIGNS OF DISTRESS NOTED. TELE MONITOR ATTACHED. SAFETY MEASURES IN PLACE. BED ALARM ACTIVATED.
[2019-09-04 12:00] VITALS: BP 123/72
[2019-09-04] MEDS ORDERED: LEVO750T51 IV (13:30)
[2019-09-04] MEDS: Z-GUARD PASTE TP SCH (13:43)
[2019-09-04] MEDS: GAUZE TP SCH (13:44)
--- NOTE | 2019-09-04 13:54 | NUR ---
FAXED OVER PACKET TO [facility], CONFIRMED WITH AMAURI THAT THEY RECEIVED PACKET. PATIENT IS UNDER REVIEW AND SHOULD BE ACCEPTED BACK FOR TOMORROW. Addendum: 09/05/19 at 1116 by Myranda Vera PATIENT WILL BE DISCHARGED TODAY BACK TO [facility] [place], TRANSPORTATION WILL BE PROVIDED BY [facility]. GOT AUTH FROM [facility] AUTH # [id number]. [facility] PROVIDED ROOM # [address] ACCE[address] DOCTOR DR. HARLEEN DENIS. TRANSPORTATION WILL BE HERE AT 3:00 PM. CONTACTED DANIEL HERNÁNDEZ TO LET HER KNOW.
--- NOTE | 2019-09-04 13:56 | NUR ---
PERFORMED WOUND CARE, CLEANSED GT STOMA, PAD DRY, APPLIED Z-GUARD AND CHANGED G-TUBE SITE DRESSING. PAINTED R HEEL WITH BATADINE AND APPLIED OPTIFOAM. CHANGED OPTIFOAM ON L HEEL. APPLIED HEEL PROTECTORS BILATERALLY. USED PILLOWS TO UPLOADED PRESSURES ON BONY AREA. HOB ELEVATED 30 DEGREE. TELE MONITOR ATTACHED. SAFETY MEASURES IN PLACE. BED ALARM ACTIVATED.
[2019-09-04] MEDS: DEXT 5% / NACL 0.45% 1,000 ML IV SCH (15:02)
--- NOTE | 2019-09-04 15:03 | NUR ---
STARTED A NEW BAG OF IVF D5 NS 045 AND INFUSING 60 ML/HR. PT IS AWAKE AND RESTING ON BED. FLACC 0. NO SIGNS OF DISTRESS NOTED. TELE MONITOR ATTACHED. SAFETY MEASURES IN PLACE. BED ALARM ACTIVATED.
[2019-09-04 16:00] VITALS: BP 116/60
--- NOTE | 2019-09-04 17:18 | NUR ---
CHECKED G-TUBE RESIDUAL AND RECEIVED < 5 ML. INCREASED FEEDING RATE TO 40 ML/HR AND H2O FLUSH 105/Q6H. WITH ASSIST FROM METAL ROOM DENTAL TECHNICIAN, PROVIDED HYGIENE CARE AND REPOSITIONED PATIENT. UPLOADED PRESSURE AREA WITH PILLOWS, PT TOLERATED WELL. FLACC 0. NO SIGNS OF DISTRESS NOTED. TELE MONITOR ATTACHED. HOB ELEVATED TO 30 DEGREE AND BED ALARM ACTIVATED.
--- NOTE | 2019-09-04 19:10 | NUR ---
RECEIVED PT APHASIC , RESPONDING TO SOUNDS AND TOUCH BY EYE OPENING AND BLINKING , NID - O2 SAT WNL , ON TELE MONITOR. IV SITE INTACT AND PATENT . ON G TUBE FEEDING - TOLERATED WELL - SOFT ABD. FEEDING RESIDUE 10 CC . INCONTINENT SAFETY MEASURES IN PLACE . CALL LIGHT WITHIN REACH . PALAN OF CARE DISCUSSED BUT POOR UNDERSTANDING DUE TO MENTAL STATUS. W/ REDNESS AT OLD G TUBE SITE . THERE IS OPEN WOUND ON R HEEL . BLISTER ON L HEEL . WILL CONT. TO MONITOR. Addendum: 09/05/19 at 0307 by Yodit Cornelius RN THE WORD PALAN ON THE ABOVE NURSE'S ENTRY IS TYPOGRAPHICALLY ERROR , INSTEAD OF PLAN- [id number]
--- NOTE | 2019-09-04 19:10 | NUR ---
ENDORSED PT TO THE AUGER MACHINE OFFBEARER RN. PT IS IN STABLE CONDITION. TELE MONITOR ATTACHED. SAFETY MEASURES IN PLACE.
[2019-09-04 20:00] VITALS: BP 105/60
--- NOTE | 2019-09-04 22:00 | NUR ---
MADE ROUNDS , NO S/S OF ACUTE DISTRESS NOTED AT THIS TIME . ON TELE MONITOR - WILL CONT. TO MONITOR.
[2019-09-05] VITALS: BP 123/56
--- NOTE | 2019-09-05 | NUR ---
MADE ROUNDS . NO S/S OF ACUTE DISTRESS NOTED AT THIS TIME . IV INFUSING WELL . WILL CONT. TO MONITOR.
--- NOTE | 2019-09-05 02:00 | NUR ---
SLEEPING - CHEST RISE AND FALL EQUALLY - ON TELE MONITOR . WILL CONT. TO MONITOR.
[2019-09-05 04:00] VITALS: BP 120/76
--- NOTE | 2019-09-05 04:00 | NUR ---
MADE ROUNDS , V/S TAKEN - WNL . WILL CONT. TO MONITOR . NO S/S OF ACUTE DISTRESS .
--- NOTE | 2019-09-05 06:00 | NUR ---
MADE ROUNDS , NO SIGGNS OF ACUTE DISTRESS NOTED
[2019-09-05 06:21] VITALS: BP 121/70
[2019-09-05] MEDS: DEXT 5% / NACL 0.45% 1,000 ML IV SCH (07:15)
--- NOTE | 2019-09-05 07:26 | NUR ---
ENDORSED - PT - STABLE - PLAN OF CARE - TO BE SENT BACK TO [facility] - ENDORSED.
--- NOTE | 2019-09-05 07:44 | NUR ---
RECEIVED BEDSIDE REPORT FROM EVENT COORDINATOR MARKETING AND SALES NURSE FOR CONTINUITY OF CARE. PT IS APHASIC, PT IS RESTING IN BED, AROUSABLE TO VOICE AND TOUCH. RESPIRATIONS ARE EVEN AND UNLABORED, BREATHING TO RA. SKIN COLOR APPROPRIATE FOR ETHNICITY. ON G-TUBE FEEDING, JEVITY 1.2. L THUMB 22G IV, IS PATENT AND INTACT, SALINE LOCK. R HEEL ULCER, AND L HEEL BLISTER NOTED. SAFETY MEASURES IN PLACE; BED IN LOW POSITION, CALL LIGHT WITHIN REACH. TELE MONITOR ATTACHED. NO ACUTE DISTRESS NOTED. WILL CONTINUE TO MONITOR.
[2019-09-05 08:00] VITALS: BP 135/75
[2019-09-05] MEDS: MULTIVITAMIN 1 TAB GT SCH (08:42)
[2019-09-05] MEDS: PANTOPRAZOLE 40 MG INJ VIAL IVP SCH (08:42)
[2019-09-05] MEDS: LISINOPRIL 5 MG TAB PO SCH (08:42)
--- NOTE | 2019-09-05 09:08 | NUR ---
IV FLUIDS HUNG, AND RUNNING PER ORDERS. SCHEDULED MEDICATIONS GIVEN. G-TUBE ASPIRATED WITH LESS THAN 2 ML RESIDUAL. G-TUBE FLUSHED BEFORE AND AFTER MEDICATION ADMINISTRATION. NO DISTRESS NOTED. SAFETY MEASURES IN PLACE. WILL CONTINUE TO MONITOR.
--- NOTE | 2019-09-05 11:15 | NUR ---
PT WILL BE TRANSFERRING BACK TO [facility] [place] TODAY. TRANSPORTATION ARRANGED FOR 1500.
[2019-09-05] MEDS: LEVOFLOXACIN 750 MG/D5W PREMIX 150 ML IV SCH (11:20)
--- NOTE | 2019-09-05 11:20 | NUR ---
IV LEVOFLOXACIN HUNG, AND RUNNING PER ORDERS. NO DISTRESS NOTED WILL CONTINUE TO MONITOR.
--- NOTE | 2019-09-05 16:59 | NUR ---
REPORT GIVEN TO FIFI AT [facility]. PT'S AUNT CALLED, AND NOTIFIED OF PT'S TRANSFER TO [facility] [place]. LOG CARRIER OPERATOR CHANGED PT TO PINK. PICTURES TAKEN OF WOUNDS ON RT AND LEFT HEELS, AND DRESSINGS CHANGED. PT DISCONNECTED FROM G-TUBE FEEDING, AND G-TUBE FLUSHED WITH SALINE. TELE MONITOR AND ARM BANDS, REMOVED. PT CONNECTED FROM IV, IV SITE ON LEFT THUMB PATENT INTACT, CAP APPLIED. DISCHARGE PAPERWORK AND PT BELONGINGS GIVEN TO TRANSPORT PERSONNEL. TRANSPORT PERSONNEL ESCORTED PT OFF THE UNIT VIA GURNEY. PT IN STABLE CONDITION. Addendum: 09/05/19 at 1706 by Cielo Iniguez RN TIME CORRECTION *1515*
== END 2019-09-05 15:20 | DRG 862 ==
LOC: EEVIPCON 15:19 → MED 15:19 → MMU 15:32 → MTU 09-03 15:50
PROVIDERS: ADMIT General Practice; ATTEND General Practice
DX: T81.49XA Infection following a procedure, other surgical site, initial encounter (principal); G82.50 Quadriplegia, unspecified; N39.0 Urinary tract infection, site not specified; K94.23 Gastrostomy malfunction; L03.90 Cellulitis, unspecified; K21.9 Gastro-esophageal reflux disease without esophagitis; G35 Multiple sclerosis; F20.9 Schizophrenia, unspecified; Z74.01 Bed confinement status; Y83.8 Other surgical procedures as the cause of abnormal reaction of the patient, or of later complication, without mention of misadventure at the time of the procedure; Y82.8 Other medical devices associated with adverse incidents; B96.1 Klebsiella pneumoniae [K. pneumoniae] as the cause of diseases classified elsewhere; Z03.818 Encounter for observation for suspected exposure to other biological agents ruled out
CPT/HCPCS: 36415; 71045; 74018; 80048; 80053; 81001; 83036; 83605; 83735; 83880; 84100; 84436; 84443; 84484; 85025; 85610; 85730; 87040; 87081; 87086; 87186; 87804; 93005; 96365; 99284; C9113; J0696; J1170; J1644; J1956; J2001; J2270; J3480; J7030; J7042; J7060; Q0092

== ENCOUNTER 2020-06-06 11:25 | Emergency (ER) | payer OTHER, SELFPAY ==
[~2020-06-06] VITALS: Ht 167.6 cm; Wt 65.8 kg
[~2020-06-06 11:25] MED LIST changes: +ACET-2619 PO; -ACET-8386; -BENEPROTEIN; +BISA-213 RC; -BISA10SU1; -CLON1TAB1; +CRAN450C PO; +DOCU-299 GT; +FLEPED RC; -FOLI1TAB19; -IRON; +LEVO750T51 IV; +MAGN400S60 PO; +MULT-2112 GT; -MVI; +OMEP20TC12 PO; -[UNRECOGNIZED DRUG - CODE]; -[UNRECOGNIZED DRUG - CODE]
[2020-06-06 11:26] VITALS: BP 120/80
[2020-06-06 13:55] VITALS: BP 133/88
== END 2020-06-06 13:57 | disposition home or self-care (01) ==
LOC: MED 11:25
DX: K94.23 Gastrostomy malfunction (principal); K21.9 Gastro-esophageal reflux disease without esophagitis; F20.9 Schizophrenia, unspecified; Z98.890 Other specified postprocedural states; Z79.899 Other long term (current) drug therapy
CPT/HCPCS: 49450; 99284